=== PATIENT | male | born 1935 | race Caucasian/White ===

== ENCOUNTER 2016-11-14 14:57 | Emergency (ER) | payer MEDICARE, BC ==
--- NOTE | 2016-11-14 15:07 | EDM.PDOC ---
ED HPI GENERAL MEDICAL PROBLEM - General Chief Complaint: Upper Extremity Injury/Pain Stated Complaint: [id number] FELL LEFT ARM PAIN Time Seen by Provider: 11/14/16 15:07 Source of Information: Reports: Patient, RN, RN Notes Reviewed History Limitations: Reports: No Limitations - History of Present Illness INITIAL COMMENTS - FREE TEXT/NARRATIVE: Fell today and injured left shoulder/upper arm. Denies significant head injury, but did get a scratch on his left frontal scalp[. Denies LOC or neck pain. Patient states he tripped. Denies chest pain, dizziness, or any other symptoms preceeding the fall. Onset: Today Quality: Reports: Ache Severity: Moderate Improves with: Reports: None Worsens with: Reports: None Associated Symptoms: Reports: No Other Symptoms Left Arm Pain Score (Numeric/FACES): 4 - Related Data Allergies Allergy/AdvReac Type Severity Reaction Status Date / Time No Known Allergies Allergy Verified 11/14/16 15:37 Home Meds: Home Meds Levothyroxine Sodium [Synthroid] 75 mcg PO ACBREAKFAST 11/14/16 [History] Naproxen Sodium [Aleve] 1 cap PO Q8HR PRN 11/14/16 [History] Omeprazole 1 cap PO DAILY 11/14/16 [History] ED ROS GENERAL - Review of Systems Review Of Systems: ROS reveals no pertinent complaints other than HPI. ED EXAM, UPPER BACK/NECK PAIN - Physical Exam Exam: See Below Exam Limited By: No Limitations General Appearance: Alert, WD/WN, No Apparent Distress Eye Exam: Bilateral Eye: Normal Inspection Ears Exam: Normal External Exam, Normal Canal, Hearing Grossly Normal, Normal TMs Nose Exam: Normal Inspection, Normal Mucousa, No Blood Throat/Mouth Exam: Normal Inspection, Normal Lips, Normal Teeth, Normal Gums, Normal Oropharynx, Normal Voice, No Airway Compromise Head Exam: Other (2cm diameter very superficial abrasion to left frontal scalp.) Neck Exam: Full Range of Motion Cardiovascular/Respiratory: Regular Rate, Rhythm Back Exam: Normal Inspection, Full Range of Motion, NT Extremities: Other (Tenderness to left lateral shoulder and proximal upper arm with no significant swelling. No deformity or bruising. 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 As Tested, No Motor/Sensory Deficits, Alert, Normal Mood/Affect, Oriented x 3 Psychiatric: Normal Affect, Normal Mood Course - Vital Signs Last Recorded V/S: Last Vital Signs Temp 36.6 C 11/14/16 15:39 Pulse 60 11/14/16 15:39 Resp 18 11/14/16 15:39 BP 130/67 11/14/16 15:39 Pulse Ox 97 11/14/16 15:39 - Orders/Labs/Meds Orders: Active Orders 24 hr Category Date Time Status DME for Discharge [COMM] Routine Oth 11/14/16 16:32 Ordered Meds: Medications Discontinued Medications Generic Name Dose Route Start Last Admin Trade Name Arcelia PRN Reason Stop Dose Admin Oxycodone/Acetaminophen 1 tab 11/14/16 16:36 11/14/16 16:42 Percocet 325-5 Mg PO 11/14/16 16:37 1 tab ONETIME ONE Administration - Radiology Interpretation Free Text/Narrative:: Left shoulder x-ray: Per rad report reveals proximal humerus fracture nondisplaced. - Re-Assessments/Exams Free Text/Narrative Re-Assessment/Exam: 11/14/16 18:34 Splint procedure/RN/shoulder immobilizer. Departure - Departure Time of Disposition: 17:14 Disposition: Home, Self-Care 01 Condition: Good Clinical Impression: Closed traumatic nondisplaced fracture of proximal end of left humerus Qualifiers: Encounter type: initial encounter Qualified Code(s): S42.202A - Unspecified fracture of upper end of left humerus, initial encounter for closed fracture - Discharge Information Instructions: Humerus Fracture Treated With Immobilization, [id number] Forms: ED Department Discharge Additional Instructions: Rx: [place] 5mg/325mg *Do not drive while under the influence of this medication. Wear left arm sling while in the shower. Wear immobilizer at all other times. Call [facility] tomorrow to schedule an appointment for your 'left proximal humerus fracture'. Return to ER if any further problems. - My Orders Last 24 Hours: My Active Orders 11/14/16 16:32 DME for Discharge [COMM] Routine - Assessment/Plan Last 24 Hours: My Active Orders 11/14/16 16:32 DME for Discharge [COMM] Routine
[2016-11-14 15:43] VITALS: BP 130/67
[2016-11-14] MEDS ORDERED: Acetaminophen/oxyCODONE 325-5 MG Tab PO ONE (16:36)
--- NOTE | 2016-11-14 16:36 | CR ---
Clinical history: 80-year-old male left shoulder pain associated with a fall. Interpretation: 2 views left shoulder and proximal humerus confirm comminuted, mildly impacted but a natomically aligned fracture proximal left humerus (spiral fracture extends into the greater tuberos ity). 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 No glenohumeral dislocation. Left lung apex is clear. No foreign bodies.
--- NOTE | 2016-11-14 16:39 | CR ---
Clinical history: 80-year-old male injured left upper extremity in a fall. Interpretation: 3 views (internal/external rotation) left humerus confirm a spiral proximal shaft fr acture that extends into the greater tuberosity and is mildly impacted but anatomically aligned i.e. nondisplaced. No associated glenohumeral left shoulder or left elbow joint dislocation.
== END 2016-11-14 17:41 | disposition home or self-care (01) ==
LOC: DL.ED 14:57
DX: S42.202A Unspecified fracture of upper end of left humerus, initial encounter for closed fracture (principal); S00.01XA Abrasion of scalp, initial encounter; Z79.899 Other long term (current) drug therapy; W01.0XXA Fall on same level from slipping, tripping and stumbling without subsequent striking against object, initial encounter
CPT/HCPCS: 73030; 73060; 99283; A9270

== ENCOUNTER 2021-11-02 16:49 | Emergency (ER) | payer MEDICARE, BC ==
[2021-11-02] MEDS ORDERED: Acetaminophen/oxyCODONE 325-5 MG Tab PO ONE ×2 (16:50→18:51)
[2021-11-02] MEDS ORDERED: Sodium Chloride 0.9% 10 ML Syringe FLUSH PRN (16:58)
[2021-11-02 17:55] LABS: ANION GAP 12.8 mEq/L (7-13); CHLORIDE,CL 104 mmol/L (98-107); PTT,PARTIAL THROMBOPLSTIN TIME 22.3 SEC (22.0-34.0); SODIUM,NA 138 mmol/L (136-145)
[2021-11-02 18:01] LABS: ESTIMATED GFR 52 mL/min (>=60)
[2021-11-02] MEDS ORDERED: Acetaminophen/oxyCODONE 325-5 MG Tab ONE (18:53)
== END 2021-11-02 19:13 | disposition home or self-care (01) ==
LOC: DL.ED 16:49
DX: S22.32XA Fracture of one rib, left side, initial encounter for closed fracture (principal); S42.018A Nondisplaced fracture of sternal end of left clavicle, initial encounter for closed fracture; E03.9 Hypothyroidism, unspecified; K21.9 Gastro-esophageal reflux disease without esophagitis; Z79.899 Other long term (current) drug therapy; W11.XXXA Fall on and from ladder, initial encounter
CPT/HCPCS: 36415; 70450; 71045; 72125; 72128; 73030; 80053; 85025; 85610; 85730; 99284; A9270; J3490

== ENCOUNTER 2025-02-15 10:08 | Emergency (ER) | payer MEDICARE, BC ==
[2025-02-15] MEDS ORDERED: Sodium Chloride 0.9% 10 ML Syringe FLUSH PRN (10:28)
[2025-02-15 10:39] LABS: PLATELET COUNT,PLT 155 10^3/uL (150-450); RED BLOOD CELL COUNT 5.23 10^6/uL (4.6-6.2); WHITE BLOOD CELL COUNT,WBC 14.2 10^3/uL (5.0-10.0)
[2025-02-15 10:41] LABS: BASOPHILS PERCENT AUTO 0.6 % (0.0-1.0); EOSINOPHILS PERCENT AUTO 0.5 % (1.0-3.0); LYMPHOCYTES PERCENT AUTO 50.2 % (20.5-50.1); MONOCYTES PERCENT AUTO 9.0 % (2-8); NEUTROPHILS PERCENT AUTO 39.7 % (42.2-75.2)
[2025-02-15 10:57] LABS: B-TYPE NATRIURETIC PEPTIDE,BNP 16.0 pg/ml (0-100)
[2025-02-15 11:03] LABS: ALANINE AMINOTRANSFERASE,ALT 151.0 U/L (16-63); ASPARTATE AMNIOTRANSFERASE,AST 140.0 U/L (15-37); BILIRUBIN TOTAL 0.8 mg/dL (0.2-1.0); BLOOD UREA NITROGEN,BUN 25.0 mg/dL (7-18); CARBON DIOXIDE,CO2 22.0 mmol/L (21-32); CREATININE 1.42 mg/dL (0.70-1.30); EST CRCL DRUG DOSING (CG) 35.27 mL/min; GLUCOSE RANDOM 106.0 mg/dL (70-99); POTASSIUM,K 4.4 mmol/L (3.5-5.1); PROTEIN TOTAL,TP 6.5 g/dL (6.4-8.2)
[2025-02-15 11:13] LABS: CHLORIDE,CL 98.0 mmol/L (98-107); SODIUM,NA 130.0 mmol/L (136-145)
[2025-02-15 11:16] LABS: A/G RATIO 0.76; ESTIMATED GFR 47.0 mL/min (>=60)
[2025-02-15] MEDS: Iopamidol 755 Mg/ML 100 ML Bottle IVPUSH ONE (12:12)
[2025-02-15 12:37] LABS: SEG NEUTROPHILS PERCENT MAN 43 % (42-75)
[2025-02-15 12:38] LABS: BAND PERCENT MAN 2 %; LYMPHOCYTES PERCENT MAN 47 % (20-50); MONOCYTES PERCENT MAN 8 % (2-8)
[2025-02-15 16:49] VITALS: BP 109/68; PULSE 78
== END 2025-02-15 16:46 ==
LOC: DL.ED 10:08
DX: R06.02 Shortness of breath (principal); K80.20 Calculus of gallbladder without cholecystitis without obstruction; K21.9 Gastro-esophageal reflux disease without esophagitis; R79.89 Other specified abnormal findings of blood chemistry; E03.9 Hypothyroidism, unspecified; Z79.899 Other long term (current) drug therapy; Z79.890 Hormone replacement therapy
CPT/HCPCS: 36415; 71046; 71275; 76705; 80053; 83690; 83735; 83880; 84484; 85025; 85379; 93005; 99285; J7040; Q9967